=== PATIENT | male | born 1980 | race Two or more races ===

== ENCOUNTER 2021-05-27 21:25 | Emergency (ER) | payer BC ==
[2021-05-27 21:36] VITALS: BP 158/88; PULSE 69; TEMP 98; BMI 20.7
[2021-05-27] MEDS ORDERED: MAG HYDROX/AL HYDROX/SIMETH 30 ML UNIT-DOSE CUP PO ONE (22:24)
[2021-05-27] MEDS ORDERED: FAMOTIDINE 20 MG/50 ML IVPB 20 MG/50 ML MG IVPB ONE (22:24)
[2021-05-27] MEDS ORDERED: ONDANSETRON 4 MG/2 ML VIAL IVPUSH ONE (22:24)
[2021-05-27] MEDS ORDERED: SODIUM CHLORIDE 0.9% 500 ML INFUS.BAG IV ONE (22:25)
[2021-05-27] MEDS ORDERED: MAG HYDROX/AL HYDROX/SIMETH 30 ML UNIT-DOSE CUP ONE (22:44)
[2021-05-27] MEDS ORDERED: FAMOTIDINE 10 MG/ML VIAL IVPB ONE (22:44)
[2021-05-27] MEDS ORDERED: ONDANSETRON 4 MG/2 ML VIAL ONE (22:44)
[2021-05-27 23:07] LABS: BASO % 0.1 % (0-2.0); HEMATOCRIT 34.3 % (35.4-49); HEMOGLOBIN 11.6 GM/dL (11.7-16.9); LYMPH % 2.9 % (8-40); MCH 30.9 pg (25.7-33.7); MCHC 33.9 g/dl (32.0-35.9); MEAN CELL VOLUME 91.3 fl (80-96); MEAN PLT VOLUME 6.2 fl (7.5-11.1); MONO % 2.3 % (3.8-10.2); NEUT % 94.7 % (42.8-82.8); PLATELET COUNT 540 10^3/uL (134-434); RBC 3.76 M/mm3 (4.00-5.60); RDW 13.4 % (11.9-15.9); WHITE BLOOD COUNT 12.9 K/mm3 (4.0-10.0)
[2021-05-27 23:24] LABS: CALCIUM 9.7 mg/dL (8.5-10.1)
[2021-05-27 23:25] LABS: ALBUMIN 3.6 g/dl (3.4-5.0); BLOOD UREA NITROGEN 13.8 mg/dL (7-18)
[2021-05-27 23:28] LABS: CREATININE 0.8 mg/dL (0.55-1.3)
[2021-05-27 23:30] LABS: BILIRUBIN,TOTAL 0.2 mg/dL (0.2-1); TOT PROT 7.5 g/dl (6.4-8.2)
[2021-05-27 23:52] LABS: ANISOCYTOSIS 0; MACROCYTOSIS 0
== END 2021-05-28 00:36 | disposition home or self-care (01) ==
LOC: JER 21:25
PROC: 3E033GC Introduction of Other Therapeutic Substance into Peripheral Vein, Percutaneous Approach (ICD-10-PCS; principal; 2021-05-27)
DX: R11.2 Nausea with vomiting, unspecified (principal)
CPT/HCPCS: 36415; 80053; 83690; 85025; 99284-25